=== PATIENT | male | born 1940 | race Hispanic/Latino ===

== ENCOUNTER 2024-02-06 12:01 | Inpatient (IN) | payer OTHER, MEDICARE ==
[~2024-02-06] VITALS: Ht 162.6 cm; Wt 73.4 kg
[2024-02-06 13:05] LABS: BASOPHILS # (AUTO) 0.03 K/uL (0.00-0.20); BASOPHILS % (AUTO) 0.4 % (0.0-5.0); EOSINOPHILS # (AUTO) 0.03 K/uL (0.00-0.70); EOSINOPHILS % (AUTO) 0.4 % (0.0-8.0); HEMATOCRIT 39.2 % (42-54); IMMATURE GRANULOCYTE ABSOLUTE 0.06 K/uL (0-1); LYMPHOCYTES # (AUTO) 1.1 K/uL (1.0-4.8); LYMPHOCYTES % (AUTO) 15.1 % (21.0-51.0); MEAN CORPUSCULAR HGB CONC 33.4 g/dL (32.0-36.0); MEAN CORPUSCULAR VOLUME 89.7 fL (79-99); MONOCYTES # (AUTO) 0.7 K/uL (0.1-1.0); MONOCYTES % (AUTO) 9.4 % (3.0-13.0); NEUTROPHILS # (AUTO) 5.2 K/uL (1.8-7.7); NEUTROPHILS % (AUTO) 73.9 % (40.0-77.0); PLATELET COUNT (AUTO) 171 K/uL (130-400); RED BLOOD CELL COUNT(AUTO) 4.37 MIL/uL (4.50-6.20); RED CELL DISTRIBUTION WIDTH 13.1 % (11.0-15.5); WHITE BLOOD COUNT (AUTO) 7.1 K/uL (4.8-10.8)
[2024-02-06 13:06] LABS: CREATININE 0.8 mg/dL (0.5-1.3); MAGNESIUM 1.9 mg/dL (1.80-2.40); POTASSIUM 4.2 mmol/L (3.5-5.1)
[2024-02-06 13:51] LABS: B-TYPE NATRIURETIC PEPTIDE 126 pg/mL (0-100)
[2024-02-06] MEDS: furoSEMIDE 20MG VIAL IV ONE (15:51)
[2024-02-06 16:30] LABS: ADD UA MICROSCOPIC YES; APPEARANCE,URINE CLEAR (CLEAR); BILIRUBIN,URINE NEGATIVE (NEGATIVE); COLOR,URINE YELLOW (YELLOW); GLUCOSE, URINE (UA) 500 mg/dL (NEGATIVE); KETONES,URINE 10 mg/dL (NEGATIVE); LEUKOCYTE ESTERASE ,URINE NEGATIVE Leu/uL (NEGATIVE); NITRATE,URINE NEGATIVE (NEGATIVE); OCCULT BLOOD,URINE NEGATIVE (NEGATIVE); PH,URINE 5.5 (5.0-8.0); PROTEIN,URINE 10 mg/dL (NEGATIVE)
[2024-02-06 16:32] LABS: MUCUS,URINE RARE LPF (None Seen); RBC,URINE 0-1 /HPF (0-1); SQUAMOUS EPITHELIAL CELL,UR RARE /HPF (0-2); WBC,URINE 0-1 /HPF (0-1)
[2024-02-06] MEDS ORDERED: ondanSETRON 4MG INJ IVP PRN (20:30)
[2024-02-06] MEDS ORDERED: doCUSate SODIUM 100 MG CAP PO PRN (20:30)
[2024-02-06] MEDS ORDERED: hydrALAZine 20MG/ML VIAL IV PRN (20:30)
[2024-02-06] MEDS ORDERED: LACTULOSE 20 GM/30 ML UDCUP PO PRN (20:30)
[2024-02-06] MEDS ORDERED: INSULIN LISpro 100 UNIT/ML 3ML SQ SCH (21:00)
[2024-02-06] MEDS: INSULIN humuLIN R 100 UNIT/ML 3ML SQ SCH (21:12)
[2024-02-07] VITALS (7 sets, daily range): BP systolic 100–156; BP diastolic 69–86; PULSE 72–80; RESP 16–18; TEMP 97.4–98.7; O2SAT 98
[2024-02-07] MEDS ORDERED: NITROGLYCERIN 0.4 MG SL TAB SL PRN (03:00)
[2024-02-07] MEDS: furoSEMIDE 40MG VIAL IV SCH (04:28)
[2024-02-07 07:11] LABS: INFLUENZA TYPE A Negative For Type A (NEGATIVE); INFLUENZA TYPE B Negative For Type B (NEGATIVE)
[2024-02-07 07:16] LABS: SARS-CoV-2, RNA, NAAT NEGATIVE SARS CoV-2 (NEGATIVE)
[2024-02-07 07:31] LABS: BASOPHILS # (AUTO) 0.04 K/uL (0.00-0.20); BASOPHILS % (AUTO) 0.5 % (0.0-5.0); EOSINOPHILS # (AUTO) 0.04 K/uL (0.00-0.70); EOSINOPHILS % (AUTO) 0.5 % (0.0-8.0); HEMATOCRIT 43.2 % (42-54); IMMATURE GRANULOCYTE ABSOLUTE 0.06 K/uL (0-1); LYMPHOCYTES # (AUTO) 1.3 K/uL (1.0-4.8); LYMPHOCYTES % (AUTO) 14.7 % (21.0-51.0); MEAN CORPUSCULAR HGB CONC 33.3 g/dL (32.0-36.0); MONOCYTES # (AUTO) 0.8 K/uL (0.1-1.0); MONOCYTES % (AUTO) 9.6 % (3.0-13.0); NEUTROPHILS # (AUTO) 6.4 K/uL (1.8-7.7); PLATELET COUNT (AUTO) 165 K/uL (130-400); WHITE BLOOD COUNT (AUTO) 8.6 K/uL (4.8-10.8)
[2024-02-07 07:46] LABS: HEMOGLOBIN A1C 11.2 % (4.0-6.0)
[2024-02-07 07:56] LABS: CREATININE 0.8 mg/dL (0.5-1.3); PHOSPHORUS 3.5 mg/dL (2.5-4.9); POTASSIUM 3.8 mmol/L (3.5-5.1); THYROID STIMULATING HORMONE 1.52 uIU/mL (0.36-3.74)
[2024-02-07 08:37] LABS: ERYTHROCYTE SEDIMENTATION RATE 35 MM/HR (0-20)
[2024-02-07] MEDS: ASPIRIN 81 MG EC TAB PO SCH (09:50)
[2024-02-07] MEDS: LoSARTan 25 MG TABLET PO SCH (09:50)
[2024-02-07] MEDS: PANTOPrazole 40 MG/VIAL IVP SCH (09:50)
[2024-02-07] MEDS ORDERED: IOHEXOL-350 75 ML VIAL IV ONE (09:55)
[2024-02-07] MEDS ORDERED: POTA-193 PO (10:08)
[2024-02-07] MEDS ORDERED: FURO40TA5 PO (10:08)
[2024-02-07] MEDS ORDERED: LOSA25TA41 PO (10:08)
[2024-02-07] MEDS ORDERED: METF-446 PO (10:26)
[2024-02-07] MEDS ORDERED: INSU200I4 SQ (10:26)
[2024-02-07] MEDS ORDERED: ACET1TAB97 PO (10:26)
[2024-02-07] MEDS ORDERED: GLIP5TAB15 PO (10:26)
[2024-02-07] MEDS ORDERED: SERT-439 PO (10:26)
[2024-02-07] MEDS ORDERED: TAMS-1 PO (10:26)
[2024-02-07] MEDS ORDERED: LINA5TAB PO (10:26)
[2024-02-07] MEDS: TEMAZepam 15 MG CAPSULE PO PRN (20:08)
[2024-02-07] MEDS: atorVAStatin 40 MG TABLET PO SCH (20:08)
[2024-02-08] VITALS (8 sets, daily range): BP systolic 96–159; BP diastolic 59–98; PULSE 66–91; RESP 16–18; TEMP 97.5–98.8; O2SAT 97–98
[2024-02-08 03:33] LABS: HEMATOCRIT 39.4 % (42-54); MEAN CORPUSCULAR HEMOGLOBIN 29.6 pg (27.0-33.0); MEAN CORPUSCULAR HGB CONC 32.7 g/dL (32.0-36.0); MEAN CORPUSCULAR VOLUME 90.4 fL (79-99); RED BLOOD CELL COUNT(AUTO) 4.36 MIL/uL (4.50-6.20); WHITE BLOOD COUNT (AUTO) 8.7 K/uL (4.8-10.8)
[2024-02-08 03:43] LABS: CREATININE 0.9 mg/dL (0.5-1.3); POTASSIUM 3.5 mmol/L (3.5-5.1)
[2024-02-08 09:12] LABS: RHEUMATOID ARTHRITIS FACTOR 12.5 IU/mL (<14.0)
[2024-02-08] MEDS: acetaMINOPHEN 325 MG TAB PO PRN (15:21)
[2024-02-08] MEDS: glipiZIDE 5MG TABLET PO SCH (20:39)
[2024-02-09] VITALS (7 sets, daily range): BP systolic 105–112; BP diastolic 50–63; PULSE 82–106; RESP 16–18; TEMP 98–98.9; O2SAT 97–99
[2024-02-09 03:57] LABS: HEMATOCRIT 39.8 % (42-54); MEAN CORPUSCULAR HEMOGLOBIN 30.2 pg (27.0-33.0); MEAN CORPUSCULAR HGB CONC 33.4 g/dL (32.0-36.0); MEAN CORPUSCULAR VOLUME 90.2 fL (79-99); RED BLOOD CELL COUNT(AUTO) 4.41 MIL/uL (4.50-6.20); RED CELL DISTRIBUTION WIDTH 13.2 % (11.0-15.5); WHITE BLOOD COUNT (AUTO) 10.5 K/uL (4.8-10.8)
[2024-02-09 04:15] LABS: ALBUMIN 2.2 g/dL (3.5-5.0); BILIRUBIN,TOTAL 0.6 mg/dL (0.2-1.0); MAGNESIUM 1.7 mg/dL (1.80-2.40); POTASSIUM 3.2 mmol/L (3.5-5.1); TOTAL PROTEIN, SERUM 6.6 g/dL (6.0-8.3)
[2024-02-09] MEDS ORDERED: PoTASSium chloRIDE 20MEQ/100ML 100 ML IV PRN (05:30)
[2024-02-09] MEDS ORDERED: PoTASSium chl 10% ELIXIR 20MEQ 20 MEQ/15 ML UDCUP PO PRN (05:30)
[2024-02-09] MEDS: PoTASSium chloRIDE 20MEQ ER 20 MEQ ERTAB PO PRN (05:57)
[2024-02-09] MEDS: MAGNESIUM 2GM PREMIX 50ML 50 ML IV PRN (05:57)
[2024-02-09] MEDS: SERTraline HCL 50 MG TABLET PO SCH (09:21)
[2024-02-09] MEDS: linAGLIPtin 5 MG TABLET PO SCH (09:21)
[2024-02-09] MEDS: tamSULOsin HCL 0.4 MG CAP.ER.24H PO SCH (09:22)
[2024-02-09] MEDS: INSULIN GLARgine 100 UNITS/ML 10 ML VIAL SQ SCH (09:25)
[2024-02-09] MEDS ORDERED: MAGNESIUM 2GM PREMIX 50ML 50 ML IV SCH (11:00)
[2024-02-09] MEDS: PoTASSium chloRIDE 20MEQ ER 20 MEQ ERTAB PO SCH (12:45)
[2024-02-09] MEDS: metOPROLol sucCINATE 25 MG TAB.SR.24H PO SCH (16:55)
[2024-02-10] VITALS (7 sets, daily range): BP systolic 102–130; BP diastolic 53–75; PULSE 72–75; RESP 17–20; TEMP 97.4–98.2; O2SAT 98–99
[2024-02-10 05:05] LABS: HEMATOCRIT 39.1 % (42-54); MEAN CORPUSCULAR HEMOGLOBIN 29.7 pg (27.0-33.0); MEAN CORPUSCULAR VOLUME 90.1 fL (79-99); RED BLOOD CELL COUNT(AUTO) 4.34 MIL/uL (4.50-6.20); WHITE BLOOD COUNT (AUTO) 9.7 K/uL (4.8-10.8)
[2024-02-10 05:16] LABS: ALBUMIN 2.3 g/dL (3.5-5.0); BILIRUBIN,TOTAL 0.7 mg/dL (0.2-1.0); CREATININE 0.8 mg/dL (0.5-1.3); MAGNESIUM 1.9 mg/dL (1.80-2.40); POTASSIUM 3.8 mmol/L (3.5-5.1); TOTAL PROTEIN, SERUM 6.7 g/dL (6.0-8.3)
[2024-02-10 11:50] LABS: INR 1.02 (0.85-1.15)
[2024-02-10] MEDS: BACLOFEN 10 MG TABLET PO SCH (20:30)
[2024-02-11] VITALS: BP 111/55; PULSE 73; RESP 20; TEMP 98.5
[2024-02-11 04:00] VITALS: BP 128/66; PULSE 98; RESP 20; TEMP 98.5
[2024-02-11 05:16] LABS: HEMATOCRIT 39.4 % (42-54); MEAN CORPUSCULAR HEMOGLOBIN 29.8 pg (27.0-33.0); MEAN CORPUSCULAR VOLUME 90.4 fL (79-99); RED BLOOD CELL COUNT(AUTO) 4.36 MIL/uL (4.50-6.20); RED CELL DISTRIBUTION WIDTH 12.8 % (11.0-15.5); WHITE BLOOD COUNT (AUTO) 8.3 K/uL (4.8-10.8)
[2024-02-11 05:27] LABS: CREATININE 0.8 mg/dL (0.5-1.3); POTASSIUM 3.9 mmol/L (3.5-5.1)
[2024-02-11 07:54] VITALS: BP 142/77; PULSE 76; RESP 18; TEMP 98.1
[2024-02-11 11:49] VITALS: BP 145/78; PULSE 80; RESP 18; TEMP 98
[2024-02-11 16:00] VITALS: BP 125/82; PULSE 72; RESP 18; TEMP 98.2
== END 2024-02-11 22:25 | disposition hospice, home (50) | DRG 291 ==
LOC: EDH 12:01 → EDHIP 20:01 → 2DH 02-07 13:53 → 3DH 02-09 16:42
PROVIDERS: ADMIT Internal Medicine; ATTEND Internal Medicine
PROC: 05HC33Z Insertion of Infusion Device into Left Basilic Vein, Percutaneous Approach (ICD-10-PCS; principal; 2024-02-06)
DX: I13.0 Hypertensive heart and chronic kidney disease with heart failure and stage 1 through stage 4 chronic kidney disease, or unspecified chronic kidney disease (principal); I50.23 Acute on chronic systolic (congestive) heart failure; R53.2 Functional quadriplegia; E87.1 Hypo-osmolality and hyponatremia; D63.1 Anemia in chronic kidney disease; Z20.822 Contact with and (suspected) exposure to COVID-19; I42.9 Cardiomyopathy, unspecified; E11.65 Type 2 diabetes mellitus with hyperglycemia; E86.0 Dehydration; E87.8 Other disorders of electrolyte and fluid balance, not elsewhere classified; E11.51 Type 2 diabetes mellitus with diabetic peripheral angiopathy without gangrene; Z66 Do not resuscitate; E78.5 Hyperlipidemia, unspecified; Z60.2 Problems related to living alone; N18.2 Chronic kidney disease, stage 2 (mild); I87.8 Other specified disorders of veins; I87.2 Venous insufficiency (chronic) (peripheral); F02.80 Dementia in other diseases classified elsewhere, unspecified severity, without behavioral disturbance, psychotic disturbance, mood disturbance, and anxiety; G30.9 Alzheimer's disease, unspecified; I35.0 Nonrheumatic aortic (valve) stenosis; M11.262 Other chondrocalcinosis, left knee; M11.261 Other chondrocalcinosis, right knee; E11.22 Type 2 diabetes mellitus with diabetic chronic kidney disease; G47.33 Obstructive sleep apnea (adult) (pediatric); I45.10 Unspecified right bundle-branch block; Z51.5 Encounter for palliative care; Z79.82 Long term (current) use of aspirin; Z79.899 Other long term (current) drug therapy; Z90.49 Acquired absence of other specified parts of digestive tract
CPT/HCPCS: 36415; 71045; 71270; 80048; 80053; 81001; 82948; 83036; 83735; 83880; 84100; 84443; 84484; 85025; 85027; 85378; 85610; 85651; 86140; 86162; 86200; 86431; 87635; 87804; 93005; 93306; 93925; 93970; 96372; 96374; C1894; G0378; J1815; J1940; J2470; J3475; Q9967; C1750